=== PATIENT | female | born 1985 | race American Indian/Alaskan Native ===

== ENCOUNTER 2017-07-02 06:46 | Emergency (ER) | payer SELFPAY ==
[2017-07-02] MEDS ORDERED: TORADOL IM ONE (09:32)
[2017-07-02] MEDS ORDERED: NORCO 5/325 PO ONE (09:32)
[2017-07-02] MEDS ORDERED: TORADOL ONE (09:34)
[2017-07-02] MEDS ORDERED: NORCO 5/325 ONE (09:35)
--- NOTE | 2017-07-02 09:45 | Emergency Department Report ---
ED Extremity Problem HPI - General Chief complaint: Back Pain/Injury Stated complaint: BIG FOOT BACK MACHINE FELL ON HER BACK Time Seen by Provider: 07/02/17 09:32 Source: patient Mode of arrival: Ambulatory Limitations: No Limitations - History of Present Illness Initial comments: 32-year-old female presents to the hospital complaints of pain in the lower back and right foot after a ice cream machine fell on her at work. This struck her lower back in her right foot. She complains of moderate to severe pain in these areas with palpation, movement, and ambulation. No weakness or numbness reported. Able to place partial weight on her right foot. Severity scale (0 -10): 9 - Related Data Previous Rx's Medication Instructions Recorded Last Taken Type HYDROcodone/APAP 5-325 [[place] 1 each PO Q6HR PRN #20 tablet 07/02/17 Unknown Rx 5/325] Ibuprofen [Motrin] 800 mg PO Q8HR PRN #30 tablet 07/02/17 Unknown Rx Allergies Allergy/AdvReac Type Severity Reaction Status Date / Time Penicillins Allergy Hives Verified 07/02/17 09:42 ED Review of Systems ROS: Stated complaint: BIG FOOT BACK MACHINE FELL ON HER BACK Other details as noted in HPI Comment: All other systems reviewed and negative ED Past Medical Hx - Past Medical History Previous Medical History?: No - Social History Smoking Status: Never Smoker Substance Use Type: None - Medications Home Medications: Home Medications Medication Instructions Recorded Confirmed Last Taken Type HYDROcodone/APAP 5-325 [[place] 1 each PO Q6HR PRN #20 tablet 07/02/17 Unknown Rx 5/325] Ibuprofen [Motrin] 800 mg PO Q8HR PRN #30 tablet 07/02/17 Unknown Rx ED Physical Exam - General Limitations: No Limitations - Other Other exam information: General: No limitations, patient is alert in no acute distress Head exam: Atraumatic, normocephalic Eyes exam: Normal appearance, pupils equal reactive to light, extraocular movements intact ENT: Moist mucous membrane, normal oropharynx Neck exam: Normal inspection, full range of motion, no meningismus nontender Respiratory exam: Clear to auscultation bilateral, no wheezes, rales, crackles Cardiovascular: Normal rate and rhythm, normal heart sounds Abdomen: Soft, nondistended, and nontender, with normal bowel sounds, no rebound, or guarding Extremity: Full range of motion, tenderness to the proximal dorsum of the foot. No tenderness to the ankle. No deformity. 2+ DP pulse Back: Normal Inspection, full range of motion, midline and bilateral muscular lumbar tenderness Neurologic: Alert, oriented x3, cranial nerves intact, no motor or sensory deficit Psychiatric: normal affect, normal mood Skin: Warm, dry, intact ED Course Vital Signs 07/02/17 07/02/17 07/02/17 08:02 09:40 09:41 Temperature 98.7 F Pulse Rate 90 Respiratory 18 Rate Blood Pressure 116/68 O2 Sat by Pulse 100 Oximetry - Reevaluation(s) Reevaluation #1: 07/02/17 09:45 [place] and Toradol ED Medical Decision Making - Radiology Data Radiology results: report reviewed, image reviewed (lumbar xray read by me: tammy) Read by radiologist Right foot x-ray: Soft tissue swelling, no bony injury, Achilles and plantar calcaneal enthesopathy - Medical Decision Making X-rays unremarkable Will be treated symptomatically for contusion Christian wrap provided for comfort - Differential Diagnosis fracture, contusion, sprain Critical Care Time: No Critical care attestation.: If time is entered above; I have spent that time in minutes in the direct care of this critically ill patient, excluding procedure time. ED Disposition Clinical Impression: Contusion of foot, right, Lumbar contusion Disposition: TO HOME OR SELFCARE Is pt being admited?: No Does the pt Need Aspirin: No Condition: Stable Instructions: Back Pain (ED), Foot Contusion (ED) Additional Instructions: Take the Medications as prescribed. Follow with the primary care doctor or clinic and orthopedic doctor provided. Return if symptoms worsen as indicated by your discharge instructions. Prescriptions: HYDROcodone/APAP 5-325 [[place] 5/325] 1 each PO Q6HR PRN #20 tablet PRN Reason: Pain Ibuprofen [Motrin] 800 mg PO Q8HR PRN #30 tablet PRN Reason: Pain Referrals: [facility] [Provider Group] - 3-5 Days (Primary care clinic) SILVIA IBANEZ JR, MD [Staff Physician] - 3-5 Days (Primary care doctor) KATHY MONAE MD [Staff Physician] - 3-5 Days (Orthopedist doctor) Forms: Work/School Release Form(ED) Time of Disposition: 11:07
--- NOTE | 2017-07-02 11:00 | XRay Report ---
XRAY RIGHT FOOT THREE VIEWS: 07/02/17 09:41 CLINICAL: Right foot pain after injury. FINDINGS: No fracture or dislocation. The joint spaces are normal. Achilles and plantar calcaneal enthesophytes. Moderate soft tissue swelling of the forefoot and midfoot. IMPRESSION: Soft tissue swelling but no bony injury. Achilles and plantar calcaneal enthesopathy.
[2017-07-02 11:32] VITALS: BP 122/64
--- NOTE | 2017-07-02 11:55 | XRay Report ---
XRAY LUMBAR SPINE THREE VIEWS: 07/02/17 06:46:00 CLINICAL: Injury and back pain. FINDINGS: Normal vertebral body height, alignment and disk spaces. The pedicles are intact. No fracture. Normal soft tissues. IMPRESSION: Normal.
== END 2017-07-02 11:31 | disposition home or self-care (01) ==
LOC: ED 06:46
DX: S90.31XA Contusion of right foot, initial encounter (principal); S30.0XXA Contusion of lower back and pelvis, initial encounter; Z88.0 Allergy status to penicillin; W22.8XXA Striking against or struck by other objects, initial encounter; Y93.89 Activity, other specified; Y92.89 Other specified places as the place of occurrence of the external cause; Y99.8 Other external cause status
CPT/HCPCS: 36415; 72100; 73630; 84703; 96372; 99284; J1885

== ENCOUNTER 2017-07-07 04:59 | Emergency (ER) | payer MEDICAID, OTHER ==
[2017-07-07 05:30] VITALS: BP 122/52
--- NOTE | 2017-07-07 07:24 | Emergency Department Report ---
ED Lower Extremity HPI - General Chief Complaint: Extremity Injury, Lower Stated Complaint: BACK PAIN; RT FOOT PAIN Time Seen by Provider: 07/07/17 07:11 Source: patient, family Mode of arrival: Ambulatory Limitations: No Limitations - History of Present Illness Initial Comments: Patient here reports that ice cream machine fell on her foot 5 days ago while at work. She reports that she is still in pain and pain center as a 10. Patient was seen here and 07/02/2017 and x-ray was then which showed no fracture or dislocation. Patient is now in her right foot. On 07/02/2017 she was treated for right foot and lower back pain. Pain is worse with movement and palpation denies any weakness or numbness. Patient is better at rest. Patient was given Summit, Flexeril and ibuprofen and she said the Summit is not working and she would like something stronger. Pain is achy throbbing. Previous x-ray from 07/02/2017 reviewed and reports unremarkable x-ray. Notes from 07/02/2017 reviewed. Patient was referred to orthopedic doctor for right foot contusion and lower back pain and she was given Christian wrap to right foot with crutches. 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 Complaint: foot injury (right foot pain status post injury on 07/02/2017) Onset/Timin -: days(s) Injury: Foot: Right (pain) Type of Injury: blunt Place: work Severity: severe Severity scale (0 -10): 10 Improves With: rest Worsens With: weight bearing, movement, palpation Context: direct blow Associated Symptoms: swelling, unable to bear weight. denies: numbness, tingling, ambulatory Treatments Prior to Arrival: NSAIDS, other (prescription medication) - Related Data Previous Rx's Medication Instructions Recorded Last Taken Type Cyclobenzaprine [Flexeril] 10 mg PO TID PRN #20 tablet 07/02/17 Unknown Rx HYDROcodone/APAP 5-325 [[place] 1 each PO Q6HR PRN #20 tablet 07/02/17 07/06/17 22 :00 Rx 5/325] Ibuprofen [Motrin] 800 mg PO Q8HR PRN #30 tablet 07/02/17 07/06/17 23:00 Rx Heating Pad [Thermophore] 1 each MC ONCE PRN #1 each 07/07/17 Unknown Rx Allergies Allergy/AdvReac Type Severity Reaction Status Date / Time Penicillins Allergy Hives Verified 07/02/17 09:42 ED Review of Systems ROS: Stated complaint: BACK PAIN; RT FOOT PAIN Other details as noted in HPI Constitutional: denies: chills, fever Respiratory: denies: cough, shortness of breath, SOB with exertion, SOB at rest , stridor, wheezing Cardiovascular: denies: chest pain, palpitations, edema, syncope Gastrointestinal: denies: abdominal pain, nausea, vomiting, diarrhea, constipation Genitourinary: denies: urgency, dysuria, discharge Musculoskeletal: back pain, joint swelling, arthralgia. denies: myalgia Skin: denies: rash, lesions, change in color, change in hair/nails, pruritus Neurological: abnormal gait. denies: headache, weakness, numbness, paresthesias , vertigo ED Past Medical Hx - Past Medical History Previous Medical History?: Yes Hx Asthma: Yes Additional medical history: Injury to back and right foot 5 days ago - Surgical History Past Surgical History?: No Additional Surgical History: adnoidectomy - Family History Family history: hypertension - Social History Smoking Status: Never Smoker Substance Use Type: None Other Social History: Divorce and works at [employer] - Medications Home Medications: Home Medications Medication Instructions Recorded Confirmed Last Taken Type Cyclobenzaprine [Flexeril] 10 mg PO TID PRN #20 tablet 07/02/17 07/07/17 Unknown Rx HYDROcodone/APAP 5-325 [[place] 1 each PO Q6HR PRN #20 tablet 07/02/17 07/07/17 22:00 Rx 5/325] Ibuprofen [Motrin] 800 mg PO Q8HR PRN #30 tablet 07/02/17 07/07/17 07/06/17 23: 00 Rx Heating Pad [Thermophore] 1 each MC ONCE PRN #1 each 07/07/17 Unknown Rx ED Physical Exam - General Limitations: No Limitations General appearance: alert, in no apparent distress - Head Head exam: Present: atraumatic, normocephalic, normal inspection - Eye Eye exam: Present: normal appearance, PERRL, EOMI Pupils: Present: normal accommodation - ENT ENT exam: Present: normal exam, normal orophraynx, mucous membranes moist - Neck Neck exam: Present: normal inspection, full ROM, other (no C-spine tenderness). Absent: tenderness, lymphadenopathy - Respiratory Respiratory exam: Present: normal lung sounds bilaterally. Absent: respiratory distress, chest wall tenderness - Cardiovascular Cardiovascular Exam: Present: regular rate, normal rhythm, normal heart sounds. Absent: systolic murmur, diastolic murmur - GI/Abdominal GI/Abdominal exam: Present: soft, normal bowel sounds. Absent: distended, tenderness - Extremities Exam Extremities exam: Present: normal inspection, full ROM, tenderness (tender to palpate right anterior foot), normal capillary refill, other (no clubbing, cyanosis or edema. Patient with full range of motion but reports pain with plantar flexion and dorsiflexion of the right foot. She has tender to palpate to proximal dorsum of right foot. Ankle is nontender to palpate. Bilateral DP and PT at 2+. Patient with good color, sensation, movement and temperature to both feet. Christian wrap remove to examine her right foot.). Absent: pedal edema, joint swelling, calf tenderness - Back Exam Back exam: Present: normal inspection, full ROM, other (patient able to ambulate with crutches and she ambulated with crutches because she has right foot injury.). Absent: tenderness, CVA tenderness (R), CVA tenderness (L), muscle spasm, paraspinal tenderness, vertebral tenderness, rash noted - Neurological Exam Neurological exam: Present: alert, oriented X3, abnormal gait (patient with abnormal gait due to right foot injury and she is ambulating with crutches.), reflexes normal, other. Absent: motor sensory deficit - Psychiatric Psychiatric exam: Present: normal affect, normal mood - Skin Skin exam: Present: warm, dry, intact, normal color. Absent: rash ED Course Vital Signs 07/07/17 05:21 Temperature 98.1 F Pulse Rate 77 Respiratory 16 Rate Blood Pressure 122/52 O2 Sat by Pulse 100 Oximetry - Reevaluation(s) Reevaluation #1: 07/07/17 08:25 Given Percocet 5/325 2 tablets by mouth in emergency room and Flexeril 10 mg by mouth for right foot pain. She is here with family and chose to leave after she was given pain medication. I am unable to reassess pain. Patient left before pain medication is able to take effect. ED Lower Extremity MDM - Medical Decision Making ED course: Diagnosis: Arthralgia right foot -Patient injured her right foot and right back at work 07/02/2017 and was seen in this emergency room and given prescription for [place], Flexeril and Motrin. She was referred to orthopedic doctor which she did not go. I discussed the patient that she will need to follow-up with orthopedic doctor for further management of contusion to right foot. X-ray report reviewed and showed unremarkable right foot and also Dr. Greco reports reviewed. -Patient still continues to wear Christian wrap to her right foot because she said it makes her feel better and she still has crutches which she is still use because she says she cannot weight-bear on her right foot. Medication: Given Percocet 5/325 2 tablets and Flexeril 10 mg when necessary emergency room and I discussed with her that she can continue to take her medication as previously prescribed by Dr. Greco and she will definitely need to follow up with orthopedic doctor to manage right foot contusion. -Patient also requests that he didn't pad for her back because she said she still have back pain. Patient here today for right foot pain and not back pain. Discharged home in stable condition with her friend in no acute distress. She was understanding of discharge instruction and treatment plan. Critical care attestation.: If time is entered above; I have spent that time in minutes in the direct care of this critically ill patient, excluding procedure time. ED Disposition Clinical Impression: Contusion of right foot, sequela, Arthralgia of right foot Disposition: DC-01 TO HOME OR SELFCARE Is pt being admited?: No Does the pt Need Aspirin: No Condition: Stable Instructions: Foot Contusion (ED), Arthralgia (ED) Additional Instructions: Please follow up with orthopedic doctor as instructed. You're given information to follow up with Dr. Gigi Stephen was orthopedic doctor on 2017 when you're seen in emergency room. If he is still having foot pain on the other pain related to injuries U will need to follow-up with orthopedic doctor for further management. continue to take Motrin, hydrocodone and Flexeril as previously ordered. Rest affected area X-ray that was done on 07/02/2017 reports that x-ray was unremarkable without any fracture or dislocation. Prescriptions: Heating Pad [Thermophore] 1 each MC ONCE PRN #1 each PRN Reason: to relieve discomfort Referrals: PRIMARY CAR[facility] [Primary Care Provider] - 24 Hours () GIGI STEPHEN MD [Staff Physician] - 24 Hours Forms: Work/School Release Form(ED)
[2017-07-07] MEDS ORDERED: PERCOCET 5/325 PO ONE (08:12)
[2017-07-07] MEDS ORDERED: FLEXERIL PO ONE (08:12)
== END 2017-07-07 08:27 | disposition home or self-care (01) ==
LOC: ED 04:59
DX: M13.871 Other specified arthritis, right ankle and foot (principal); S90.31XS Contusion of right foot, sequela; X58.XXXS Exposure to other specified factors, sequela; Z88.0 Allergy status to penicillin
CPT/HCPCS: 99282

== ENCOUNTER 2017-12-02 22:29 | Emergency (ER) | payer MEDICAID ==
--- NOTE | 2017-12-03 04:27 | Emergency Department Report ---
[facility] Chief Complaint: Eye Problems Stated Complaint: STYE ON LEFT EYE Time Seen by Provider: 12/03/17 03:48 Side: Bilateral Severity: moderate Symptoms: Yes Eye Itching, Yes Eye Redness, Yes Eye Pain (burning ), Yes Fever, Yes Headache, No Mucous Drainage, No Purulent Drainage, No Blurred Vision, No Preceding URI, No H/O Allergic Rhinitis, No Contact Lens Use, No Trauma ED Review of Systems ROS: Stated complaint: STYE ON LEFT EYE Other details as noted in HPI Constitutional: denies: chills, fever Eyes: denies: eye pain, eye discharge, vision change ENT: denies: ear pain, throat pain Respiratory: denies: cough, shortness of breath, wheezing Cardiovascular: denies: chest pain, palpitations Endocrine: no symptoms reported Gastrointestinal: denies: abdominal pain, nausea, diarrhea Genitourinary: as per HPI Musculoskeletal: denies: back pain, joint swelling, arthralgia Skin: denies: rash, lesions Neurological: denies: headache, weakness, paresthesias Psychiatric: denies: anxiety, depression Hematological/Lymphatic: denies: easy bleeding, easy bruising ED Past Medical Hx - Past Medical History Previous Medical History?: Yes Hx Asthma: Yes Additional medical history: Injury to back and right foot 5 days ago - Surgical History Past Surgical History?: Yes Additional Surgical History: adnoidectomy - Social History Smoking Status: Never Smoker Substance Use Type: Alcohol - Medications Home Medications: Home Medications Medication Instructions Recorded Confirmed Last Taken Type Cyclobenzaprine [Flexeril] 10 mg PO TID PRN #20 tablet 07/02/17 07/07/17 Unknown Rx HYDROcodone/APAP 5-325 [[place] 1 each PO Q6HR PRN #20 tablet 07/02/17 07/07/17 22:00 Rx 5/325] Heating Pad [Thermophore] 1 each MC ONCE PRN #1 each 07/07/17 Unknown Rx Ciprofloxacin HCl [Ciloxan OPTH 1 applicator OP BID 7 Days #1 tube 12/03/17 Unknown Rx OINT] Ibuprofen [Motrin 800 MG tab] 800 mg PO Q8HR PRN 30 Days #30 12/03/17 Unknown Rx tablet [facility] Exam - Exam General: Vital signs noted. No distress. Alert and acting appropriately. Eye Exam: Both Injection, Neither Chemosis, Neither Abnormal Pupil, Neither EOMI , Neither Eye Foreign Body, Neither Lid Foreign Body, Neither Mucous Discharge, Neither Purulent Discharge, Neither Fluorescein Uptake, Neither Fluorescein Uptake (slit lamp), Neither Cell/Flare (slit lamp), Neither Corneal Edema, Neither Photophobia HEENT: No Nasal Congestion, No Pharyngeal Erythema Remainder of HEENT: Normal Lungs: Yes Clear Lung Sounds, Yes Good Air Exchange, Yes Cough, Yes Nasal Flaring, No Wheezes, No Stridor, No Retractions, No Use of Accessory Muscles ED Course Vital Signs 12/02/17 22:42 Temperature 98.7 F Pulse Rate 87 Respiratory 14 Rate Blood Pressure 114/55 O2 Sat by Pulse 100 Oximetry ED Medical Decision Making - Medical Decision Making Stye with conjuncitivitis will tx with cipro ophthal as ptient is allergic to pcn, drugs. pt verbalized agreement and understanding of same for dc to home at this time. pt is a/o x 3 ambulatory with steady gait ,. Critical care attestation.: If time is entered above; I have spent that time in minutes in the direct care of this critically ill patient, excluding procedure time. ED Disposition Clinical Impression: Conjunctivitis Qualifiers: Conjunctivitis type: acute Acute conjunctivitis type: viral Laterality: unspecified laterality Qualified Code(s): B30.9 - Viral conjunctivitis, unspecified Disposition: DC-01 TO HOME OR SELFCARE Is pt being admited?: No Does the pt Need Aspirin: No Condition: Good Instructions: Stye (ED), Conjunctivitis (ED) Prescriptions: Ciprofloxacin HCl [Ciloxan OPTH OINT] 1 applicator OP BID 7 Days #1 tube Ibuprofen [Motrin 800 MG tab] 800 mg PO Q8HR PRN 30 Days #30 tablet PRN Reason: Pain Referrals: PRIMARY CARE,MD [Primary Care Provider] - 3-5 Days Forms: Work/School Release Form(ED) Time of Disposition: 04:32
[2017-12-03 04:37] VITALS: BP 122/74
== END 2017-12-03 04:36 | disposition home or self-care (01) ==
LOC: ED 22:29
DX: B30.9 Viral conjunctivitis, unspecified (principal); J45.909 Unspecified asthma, uncomplicated; Z90.89 Acquired absence of other organs; Z88.0 Allergy status to penicillin
CPT/HCPCS: 99282